=== PATIENT | female | born 1950 | race Two or more races ===

== ENCOUNTER → 2024-06-10 | Emergency (ER) | payer OTHER ==
[~2024-06-10] VITALS: Ht 170.2 cm; Wt 61.2 kg
[~2024-06-10] MED LIST: KETOROLAC TROMETHAMINE 60 MG VIAL IM ONE; TRIAMCINOLONE ACETONIDE 40 MG/ML VIAL IM ONE; TRIAMCINOLONE ACETONIDE 40 MG/ML VIAL ONE; ZESTRIL2.5 MG
== END | disposition home or self-care (01) ==
LOC: ER 17:29
DX: S42.391A Other fracture of shaft of right humerus, initial encounter for closed fracture (principal); I10 Essential (primary) hypertension
CPT/HCPCS: 29125; 73060; 96372; 99283; J1885; J3301

== ENCOUNTER 2024-06-14 08:14 | Outpatient (CLI) | payer OTHER ==
[~2024-06-14 08:14] MED LIST changes: -KETOROLAC TROMETHAMINE 60 MG VIAL IM ONE; -TRIAMCINOLONE ACETONIDE 40 MG/ML VIAL IM ONE; -TRIAMCINOLONE ACETONIDE 40 MG/ML VIAL ONE
[2024-06-14 09:26] LABS: URINE APPEARANCE Cloudy; URINE BILIRRUBIN Negative (NEGATIVE); URINE BLOOD Moderate; URINE COLOR Yellow; URINE GLUCOSE Negative (NEGATIVE); URINE KETONE 15 (NEGATIVE); URINE LEUKOCYTE Large; URINE NITRATE Negative; URINE PROTEIN 30 (NEGATIVE)
[2024-06-14 09:27] LABS: URINE BACTERIA 1102.4 uL (0.0-1933); URINE EPITHELIAL CELLS 4.9 uL (0.0-38.8); URINE RBC 135.5 uL (0.0-20.8)
[2024-06-14 09:49] LABS: MEAN CORPUSCULAR HGB CONC 29.5 g/dl (32.0-36.0); PLATELET COUNT 416 K/uL (150-450); RED BLOOD COUNT 3.21 M/uL (4.00-6.00); RED CELL DISTRIBUTION WIDTH 23.8 % (11.5-14.5)
[2024-06-14 09:59] LABS: INR 1.13; PARTIAL THROMBOPLASTIN TIME 24.7 SECONDS (22.0-34.0); PROTHROMBIN TIME 11.8 SECONDS (9.0-11.5)
[2024-06-14 10:04] LABS: HEMATOCRIT 20.9 % (36.0-45.00); MEAN CELL VOLUME 65.3 fL (80.00-100.00); MEAN CORPUSCULAR HEMOGLOBIN 19.3 pg (27.00-32.0)
[2024-06-14 10:06] LABS: HEMOGLOBIN 6.2 g/dL (12.0-15.00)
[2024-06-14 10:18] LABS: BILIRUBIN TOTAL 0.34 mg/dL (0.3-1.2); CALCIUM 9.1 mg/dL (8.5-10.1); CREATININE SERUM 0.72 mg/dL (0.55-1.02); GFR 79.62; GLOBULINA 4.5 G/DL (2.4-3.5); POTASSIUM 3.94 mEq/L (3.5-5.1); TOTAL PROTEIN 7.5 gm/dL (6.4-8.2)
[2024-06-14 10:25] LABS: ERYTHROCYTE SEDIMENTATION RATE 84 mm/hr
[2024-06-14 10:27] LABS: C-REACTIVE PROTEIN 4.89 MG/DL (0.00-0.29)
[2024-06-15 09:08] LABS: CA 125 15.6 U/mL (0.0-38.1)
[2024-06-16 13:06] LABS: albu 38.2 % (.); alp 1.8 % (.); alph 2 11.7 % (.); beta 29.9 % (.); gam 18.4 % (.); m spi 0 % (Not Observed)
[2024-06-17 01:05] LABS: Phos alk 79 IU/L (44-121); bone f 19 % (14-68); intestinal f 1 % (0-18); liver fractio 80 % (18-85)
[2024-06-18] MEDS ORDERED: ZESTRIL2.5 MG PO (17:13)
[2024-06-18] MEDS ORDERED: TRAMADOL HCL50 MG PO (17:14)
[2024-06-18] MEDS ORDERED: COLACE100 MG PO (17:15)
== END 2024-06-14 08:20 | disposition home or self-care (01) ==
LOC: LAB 08:14
PROVIDERS: ATTEND Orthopaedic Surgery
DX: D64.9 Anemia, unspecified (principal); M06.4 Inflammatory polyarthropathy; E88.89 Other specified metabolic disorders; D68.8 Other specified coagulation defects; N39.0 Urinary tract infection, site not specified; M81.8 Other osteoporosis without current pathological fracture

== ENCOUNTER 2024-06-14 09:27 | Outpatient (CLI) | payer OTHER | END 2024-06-14 09:31 | disposition home or self-care (01) | LOC: RAD 09:27 | PROVIDERS: ATTEND Orthopaedic Surgery | DX: S42.324A Nondisplaced transverse fracture of shaft of humerus, right arm, initial encounter for closed fracture (principal); Z76.89 Persons encountering health services in other specified circumstances ==

== ENCOUNTER 2024-06-14 15:29 | Inpatient (IN) | payer OTHER ==
[2024-06-14] MEDS ORDERED: SODIUM CHLORIDE 0.45 % 1,000 ML IV SCH (18:45)
[2024-06-14] MEDS ORDERED: TRAMADOL HCL 50 MG TABLET PO PRN (18:45)
[2024-06-14] MEDS ORDERED: FUROsemide 20 MG/2 ML VIAL IV SCH (18:45)
[2024-06-15] MEDS ORDERED: LISINOPRIL 2.5 MG TABLET PO SCH (09:00)
[2024-06-15] MEDS ORDERED: ENALAPRILAT DIHYDRATE 1.25 MG/ML VIAL IV STA (15:04)
[2024-06-15] MEDS ORDERED: ENALAPRILAT DIHYDRATE 1.25 MG/ML VIAL IV PRN (18:00)
[2024-06-16 07:09] LABS: IMMUNOGLOBULIN A 385 mg/dL (64-422); IMMUNOGLOBULIN G 1619 mg/dL (586-1602); IMMUNOGLOBULIN M 116 mg/dL (26-217)
[2024-06-16 08:59] LABS: HEMATOCRIT 31.5 % (36.0-45.00); MEAN CELL VOLUME 71.3 fL (80.00-100.00); MEAN CORPUSCULAR HEMOGLOBIN 22.8 pg (27.00-32.0); PLATELET COUNT 323 K/uL (150-450); RED BLOOD COUNT 4.42 M/uL (4.00-6.00)
[2024-06-16 09:02] LABS: RED CELL DISTRIBUTION WIDTH 26.4 % (11.5-14.5)
[2024-06-16 09:03] LABS: HEMOGLOBIN 10.1 g/dL (12.0-15.00)
[2024-06-16 15:11] LABS: kappa lambda r 1.03 (0.26-1.65); kappa light 41.6 mg/L (3.3-19.4); lambda light 40.4 mg/L (5.7-26.3)
[2024-06-16] MEDS ORDERED: DOCUSATE SODIUM 100MG CAP PO STA (19:13)
[2024-06-17 05:24] LABS: HEMATOCRIT 31.5 % (36.0-45.00); MEAN CELL VOLUME 72.5 fL (80.00-100.00); MEAN CORPUSCULAR HGB CONC 31.4 g/dl (32.0-36.0); PLATELET COUNT 301 K/uL (150-450); RED BLOOD COUNT 4.35 M/uL (4.00-6.00)
[2024-06-17 05:25] LABS: HEMOGLOBIN 9.9 g/dL (12.0-15.00); MEAN CORPUSCULAR HEMOGLOBIN 22.7 pg (27.00-32.0); RED CELL DISTRIBUTION WIDTH 26.4 % (11.5-14.5)
[2024-06-17] MEDS ORDERED: DOCUSATE SODIUM 100MG CAP PO SCH (09:00)
[2024-06-17 13:09] LABS: a:g ratio 0.7 (0.7-1.7); alpha 1 g 0.4 g/dL (0.0-0.4); alpha 2 0.8 g/dL (0.4-1.0); beta g 1.3 g/dL (0.7-1.3); gamma g 1.7 g/dL (0.4-1.8); globulin t 4.2 g/dL (2.2-3.9); m spike Not Observed g/dL (Not Observed); prot total 7.2 g/dL (6.0-8.5)
[2024-06-17] MEDS ORDERED: LIDOCAINE HCL 1% 10ML VIAL IJ STA (18:16)
[2024-06-17] MEDS ORDERED: KETOROLAC TROMETHAMINE 30 MG VIAL IV STA (18:21)
[2024-06-18] MEDS ORDERED: ZESTRIL2.5 MG PO ×2 (17:13)
[2024-06-18] MEDS ORDERED: TRAMADOL HCL50 MG PO ×2 (17:14)
[2024-06-18] MEDS ORDERED: COLACE100 MG PO ×2 (17:15)
== END 2024-06-18 18:17 | disposition home or self-care (01) | DRG 841 ==
LOC: MEDI 15:29
PROVIDERS: ADMIT Internal Medicine Hematology & Oncology; ATTEND Internal Medicine Hematology & Oncology
PROC: 30233N1 Transfusion of Nonautologous Red Blood Cells into Peripheral Vein, Percutaneous Approach (ICD-10-PCS; 2024-06-15)
PROC: 07DR3ZZ Extraction of Iliac Bone Marrow, Percutaneous Approach (ICD-10-PCS; principal; 2024-06-17)
PROC: 079T3ZX Drainage of Bone Marrow, Percutaneous Approach, Diagnostic (ICD-10-PCS; 2024-06-17)
DX: C90.00 Multiple myeloma not having achieved remission (principal); M84.421A Pathological fracture, right humerus, initial encounter for fracture; D63.0 Anemia in neoplastic disease; C80.1 Malignant (primary) neoplasm, unspecified
CPT/HCPCS: 240

== ENCOUNTER → 2024-06-22 10:54 | Outpatient (CLI) | payer OTHER ==
[~2024-06-22 10:54] MED LIST changes: +COLACE100 MG PO; +TRAMADOL HCL50 MG PO; +ZESTRIL2.5 MG PO
== END | disposition home or self-care (01) ==
LOC: NUCLEAR 10:54
PROVIDERS: ATTEND Orthopaedic Surgery
DX: S42.324A Nondisplaced transverse fracture of shaft of humerus, right arm, initial encounter for closed fracture (principal)
CPT/HCPCS: 78315; A9503

== ENCOUNTER 2024-07-01 08:16 | Outpatient (CLI) | payer OTHER ==
[2024-07-01 09:08] LABS: HEMATOCRIT 33.1 % (36.0-45.00); HEMOGLOBIN 10.3 g/dL (12.0-15.00); MEAN CELL VOLUME 74.1 fL (80.00-100.00); MEAN CORPUSCULAR HEMOGLOBIN 22.9 pg (27.00-32.0); MEAN CORPUSCULAR HGB CONC 30.9 g/dl (32.0-36.0); PLATELET COUNT 390 K/uL (150-450); RED BLOOD COUNT 4.47 M/uL (4.00-6.00)
== END 2024-07-01 08:22 | disposition home or self-care (01) ==
LOC: LAB 08:16
PROVIDERS: ATTEND Internal Medicine Hematology & Oncology
DX: D63.0 Anemia in neoplastic disease (principal); C90.00 Multiple myeloma not having achieved remission

== ENCOUNTER 2024-07-06 09:05 | Outpatient (CLI) | payer OTHER | END 2024-07-06 09:10 | disposition home or self-care (01) | LOC: RAD 09:05 | PROVIDERS: ATTEND Orthopaedic Surgery | DX: S42.324A Nondisplaced transverse fracture of shaft of humerus, right arm, initial encounter for closed fracture (principal) ==

== ENCOUNTER 2024-07-08 08:29 | Outpatient (CLI) | payer OTHER ==
[2024-07-08 09:14] LABS: HEMATOCRIT 33.3 % (36.0-45.00); HEMOGLOBIN 10.5 g/dL (12.0-15.00); MEAN CELL VOLUME 74.4 fL (80.00-100.00); MEAN CORPUSCULAR HEMOGLOBIN 23.5 pg (27.00-32.0); MEAN CORPUSCULAR HGB CONC 31.6 g/dl (32.0-36.0); PLATELET COUNT 320 K/uL (150-450); RED BLOOD COUNT 4.48 M/uL (4.00-6.00); RED CELL DISTRIBUTION WIDTH 26.2 % (11.5-14.5)
[2024-07-08 09:25] LABS: PH,URINE 7.5 (5.0-8.0); URINE APPEARANCE Clear; URINE BILIRRUBIN Negative (NEGATIVE); URINE BLOOD Negative; URINE COLOR Yellow; URINE GLUCOSE Negative (NEGATIVE); URINE KETONE Negative (NEGATIVE); URINE LEUKOCYTE Moderate; URINE NITRATE Negative; URINE PROTEIN Negative (NEGATIVE); URINE UROBILINOGEN 0.2 E.U./dl
[2024-07-08 09:26] LABS: URINE BACTERIA 41.5 uL (0.0-1933); URINE EPITHELIAL CELLS 5.4 uL (0.0-38.8); URINE RBC 6.1 uL (0.0-20.8); URINE WBC 90.7 uL (0.0-23.2)
[2024-07-08 09:50] LABS: INR 1.13; PARTIAL THROMBOPLASTIN TIME 26.6 SECONDS (22.0-34.0); PROTHROMBIN TIME 12.2 SECONDS (9.0-11.5)
[2024-07-08 09:56] LABS: ALBUMIN 3.1 gm/dL (3.4-5.0); BILIRUBIN TOTAL 0.41 mg/dL (0.3-1.2); CALCIUM 9.5 mg/dL (8.5-10.1); CHOL HDL RATIO 3.4 (0-5.0); CREATININE SERUM 0.68 mg/dL (0.55-1.02); GFR 85.05; GLOBULINA 4.7 G/DL (2.4-3.5); POTASSIUM 4.14 mEq/L (3.5-5.1); TOTAL PROTEIN 7.8 gm/dL (6.4-8.2)
== END 2024-07-08 08:38 | disposition home or self-care (01) ==
LOC: LAB 08:29
PROVIDERS: ATTEND Orthopaedic Surgery
DX: D64.9 Anemia, unspecified (principal); E88.89 Other specified metabolic disorders; D68.8 Other specified coagulation defects; N39.0 Urinary tract infection, site not specified; Z22.322 Carrier or suspected carrier of Methicillin resistant Staphylococcus aureus; E11.9 Type 2 diabetes mellitus without complications; I10 Essential (primary) hypertension; Z76.89 Persons encountering health services in other specified circumstances; E78.00 Pure hypercholesterolemia, unspecified; E11.51 Type 2 diabetes mellitus with diabetic peripheral angiopathy without gangrene; I13.10 Hypertensive heart and chronic kidney disease without heart failure, with stage 1 through stage 4 chronic kidney disease, or unspecified chronic kidney disease; R74.01 Elevation of levels of liver transaminase levels; D64.89 Other specified anemias

== ENCOUNTER → 2024-07-16 06:04 | Outpatient (CLI) | payer OTHER ==
[2024-07-16 07:54] LABS: INR 1.1; PARTIAL THROMBOPLASTIN TIME 26.8 SECONDS (22.0-34.0)
[2024-07-16 07:57] LABS: PROTHROMBIN TIME 11.9 SECONDS (9.0-11.5)
== END | disposition home or self-care (01) ==
LOC: LAB 06:04
PROVIDERS: ATTEND Orthopaedic Surgery
DX: D68.8 Other specified coagulation defects (principal)

== ENCOUNTER 2024-07-19 05:55 | Inpatient (IN) | payer OTHER ==
[2024-07-14 12:55] VITALS: BP 150/71
[~2024-07-19] VITALS: Ht 170.2 cm; Wt 52.6 kg
[2024-07-19] MEDS ORDERED: CEFAZOLIN SODIUM 1,000 MG VIAL ONE ×2 (07:33→17:09)
[2024-07-19] MEDS ORDERED: BUPIVACAINE HCL/Mpf 0.5% 10ML VIAL ONE (07:33)
[2024-07-19] MEDS ORDERED: MORPHINE SULFATE 4 MG/ML VIAL IV ONE ×4 (12:45→14:00)
[2024-07-19] MEDS ORDERED: MEPERIDINE HCL/PF 50 MG/ML VIAL IM PRN (13:30)
[2024-07-19] MEDS ORDERED: ONDANSETRON 4 MG TAB.RAPDIS PO PRN (13:30)
[2024-07-19] MEDS ORDERED: ONDANSETRON HCL 2 MG/ML VIAL IV PRN (13:30)
[2024-07-19] MEDS ORDERED: PROMETHAZINE HCL 50 MG/ML AMPUL IM PRN (13:30)
[2024-07-19] MEDS ORDERED: TRAMADOL HCL 50 MG TABLET PO PRN (13:30)
[2024-07-19] MEDS ORDERED: SODIUM CHLORIDE 0.45 % 1,000 ML IV SCH (13:30)
[2024-07-19] MEDS ORDERED: PANTOPRAZOLE SODIUM 40 MG TABLET.DR PO SCH (13:31)
[2024-07-19] MEDS ORDERED: BUPIVACAINE HCL/PF 0.25% 30ML VIAL InF ONE (16:00)
[2024-07-19] MEDS ORDERED: CEFAZOLIN SODIUM 1,000 MG VIAL IV ONE (16:00)
[2024-07-19] MEDS ORDERED: ACETAMINOPHEN 325 MG TABLET PO SCH (17:00)
[2024-07-19] MEDS ORDERED: CEFAZOLIN SODIUM 1,000 MG VIAL IV SCH (17:00)
[2024-07-19 19:06] VITALS: BP 137/70; O2SAT 95
[2024-07-19] MEDS ORDERED: KETOROLAC TROMETHAMINE 10 MG TABLET PO SCH (21:00)
[2024-07-20] VITALS: BP 118/65; O2SAT 99
[2024-07-20 07:48] VITALS: BP 116/62; O2SAT 95
[2024-07-20 08:45] LABS: HEMATOCRIT 30.3 % (36.0-45.00); MEAN CELL VOLUME 73.9 fL (80.00-100.00); MEAN CORPUSCULAR HEMOGLOBIN 23.4 pg (27.00-32.0); MEAN CORPUSCULAR HGB CONC 31.6 g/dl (32.0-36.0); PLATELET COUNT 268 K/uL (150-450)
[2024-07-20 08:53] LABS: HEMOGLOBIN 9.6 g/dL (12.0-15.00); RED CELL DISTRIBUTION WIDTH 25.5 % (11.5-14.5)
[2024-07-20] MEDS ORDERED: LISINOPRIL 2.5 MG TABLET PO SCH (17:00)
[2024-07-20] MEDS ORDERED: SOD FERRIC GLUC COMPLX/SUCROSE 62.5 MG in 0.9 % SODIUM CHLORIDE 50 ML IV SCH (17:00)
[2024-07-21] MEDS ORDERED: SENNA/DOCUSATE SODIUM 1 TAB TABLET PO SCH (09:00)
== END 2024-07-20 14:06 | disposition home or self-care (01) | DRG 478 ==
LOC: CIR.AMB 05:55 → O/R 13:53 → SURH 14:02
PROVIDERS: ADMIT Orthopaedic Surgery; ATTEND Orthopaedic Surgery
PROC: 0PSF06Z Reposition Right Humeral Shaft with Intramedullary Internal Fixation Device, Open Approach (ICD-10-PCS; 2024-07-19)
PROC: 0PBF3ZX Excision of Right Humeral Shaft, Percutaneous Approach, Diagnostic (ICD-10-PCS; principal; 2024-07-19 07:00)
DX: C40.01 Malignant neoplasm of scapula and long bones of right upper limb (principal); M84.421A Pathological fracture, right humerus, initial encounter for fracture; D63.0 Anemia in neoplastic disease; Z20.822 Contact with and (suspected) exposure to COVID-19

== ENCOUNTER 2024-08-01 10:47 | Inpatient (IN) | payer OTHER ==
[~2024-08-01] VITALS: Ht 160 cm; Wt 83.0 kg
[2024-08-01] MEDS ORDERED: ATORVASTATIN CA20 MG PO (11:07)
[2024-08-01] MEDS ORDERED: 0.9 % SODIUM CHLORIDE 1,000 ML IV ONE (11:30)
[2024-08-01] MEDS ORDERED: FAMOtidine 10 MG/ML (4ML VIAL) IV ONE (11:45)
[2024-08-01 12:12] LABS: HEMATOCRIT 30.8 % (36.0-45.00); HEMOGLOBIN 9.8 g/dL (12.0-15.00); MEAN CELL VOLUME 76.1 fL (80.00-100.00); MEAN CORPUSCULAR HEMOGLOBIN 24.1 pg (27.00-32.0); MEAN CORPUSCULAR HGB CONC 31.7 g/dl (32.0-36.0); PLATELET COUNT 439 K/uL (150-450); RED BLOOD COUNT 4.05 M/uL (4.00-6.00); RED CELL DISTRIBUTION WIDTH 24.8 % (11.5-14.5)
[2024-08-01 12:32] LABS: ALBUMIN 2.9 gm/dL (3.4-5.0); BILIRUBIN TOTAL 0.43 mg/dL (0.3-1.2); CALCIUM 9.8 mg/dL (8.5-10.1); CREATININE SERUM 0.74 mg/dL (0.55-1.02); GFR 77.14; GLOBULINA 5.4 G/DL (2.4-3.5); POTASSIUM 3.77 mEq/L (3.5-5.1); TOTAL PROTEIN 8.3 gm/dL (6.4-8.2)
[2024-08-01 13:00] LABS: PH,URINE 6.5 (5.0-8.0); URINE APPEARANCE Clear; URINE BILIRRUBIN Negative (NEGATIVE); URINE BLOOD Negative; URINE COLOR Yellow; URINE GLUCOSE Negative (NEGATIVE); URINE KETONE Negative (NEGATIVE); URINE LEUKOCYTE Small; URINE NITRATE Negative; URINE PROTEIN Negative (NEGATIVE); URINE UROBILINOGEN 0.2 E.U./dl
[2024-08-01 13:01] LABS: URINE BACTERIA 66.7 uL (0.0-1933); URINE RBC 2.5 uL (0.0-20.8); URINE WBC 14.3 uL (0.0-23.2)
[2024-08-01] MEDS ORDERED: CEFTRIAXONE SODIUM 1,000 MG VIAL IV ONE (14:15)
[2024-08-01] MEDS ORDERED: INSULIN REGULAR, HUMAN 1,000 UNIT/10 ML UNITS SUBCUTANEO NR (14:29)
[2024-08-01] MEDS ORDERED: 0.9 % SODIUM CHLORIDE 1,000 ML IV SCH (20:00)
[2024-08-01] MEDS ORDERED: PIPERACILLIN/TAZOBACTAM SODIUM 3.375 GM in DEXTROSE 5 % IN WATER 100 ML IV SCH (20:09)
[2024-08-01] MEDS ORDERED: ONDANSETRON HCL 4 MG in 0.9 % SODIUM CHLORIDE 50 ML IV PRN (20:15)
[2024-08-01] MEDS ORDERED: ACETAMINOPHEN 500 MG GEL..CAP PO PRN (20:15)
[2024-08-01] MEDS ORDERED: LACTULOSE 10 G/15 ML ML PO ONE (20:15)
[2024-08-01 21:28] LABS: INR 1.15; PARTIAL THROMBOPLASTIN TIME 22.8 SECONDS (22.0-34.0); PROTHROMBIN TIME 12.4 SECONDS (9.0-11.5)
[2024-08-01 22:54] VITALS: BP 180/89; O2SAT 98
[2024-08-02 02:21] VITALS: BP 194/76; O2SAT 99
[2024-08-02 08:33] VITALS: BP 168/67
[2024-08-02] MEDS ORDERED: LISINOPRIL 2.5 MG TABLET PO SCH (09:00)
[2024-08-02] MEDS ORDERED: ATORVASTATIN CALCIUM 20 MG TABLET PO SCH (09:00)
[2024-08-02] MEDS ORDERED: FAMOTIDINE/PF 20 MG in 0.9 % SODIUM CHLORIDE 8 ML IV PUSH SCH (09:00)
[2024-08-02 14:10] LABS: URINE APPEARANCE Clear; URINE BILIRRUBIN Negative (NEGATIVE); URINE BLOOD Negative; URINE COLOR Yellow; URINE GLUCOSE Negative (NEGATIVE); URINE KETONE Negative (NEGATIVE); URINE LEUKOCYTE Negative; URINE NITRATE Negative; URINE PROTEIN Negative (NEGATIVE); URINE UROBILINOGEN 0.2 E.U./dl
[2024-08-02 14:11] LABS: URINE EPITHELIAL CELLS 2.6 uL (0.0-38.8); URINE RBC 2.7 uL (0.0-20.8); URINE WBC 2.4 uL (0.0-23.2)
[2024-08-02 14:37] LABS: URINE BACTERIA 2.5 uL (0.0-1933)
[2024-08-02 14:41] LABS: HEMATOCRIT 27.6 % (36.0-45.00); MEAN CORPUSCULAR HGB CONC 31.5 g/dl (32.0-36.0); PLATELET COUNT 376 K/uL (150-450); RED BLOOD COUNT 3.64 M/uL (4.00-6.00); RED CELL DISTRIBUTION WIDTH 24.6 % (11.5-14.5)
[2024-08-02 14:42] LABS: HEMOGLOBIN 8.7 g/dL (12.0-15.00); MEAN CORPUSCULAR HEMOGLOBIN 23.9 pg (27.00-32.0)
[2024-08-02 15:14] LABS: C-REACTIVE PROTEIN 11.7 MG/DL (0.00-0.29); MAGNESIUM 2.2 mg/dL (1.8-2.4); PHOSPHOROUS 5.7 mg/dL (2.5-4.9)
[2024-08-02 17:15] VITALS: BP 137/75; O2SAT 98
[2024-08-03 03:08] VITALS: BP 145/75; O2SAT 100
[2024-08-03] MEDS ORDERED: LISINOPRIL 10 MG TABLET PO SCH (09:00)
[2024-08-03 09:34] VITALS: BP 132/65
[2024-08-03 11:10] LABS: ALBUMIN 2.1 gm/dL (3.4-5.0); BILIRUBIN TOTAL 0.67 mg/dL (0.3-1.2); CALCIUM 8.8 mg/dL (8.5-10.1); CREATININE SERUM 0.64 mg/dL (0.55-1.02); GFR 91.22; GLOBULINA 3.9 G/DL (2.4-3.5); POTASSIUM 4.14 mEq/L (3.5-5.1)
[2024-08-03 19:23] VITALS: BP 147/75; O2SAT 97
[2024-08-04 02:17] VITALS: BP 152/75; O2SAT 95
[2024-08-04 08:53] LABS: HEMATOCRIT 26.6 % (36.0-45.00); HEMOGLOBIN 8.3 g/dL (12.0-15.00); MEAN CELL VOLUME 77.3 fL (80.00-100.00); MEAN CORPUSCULAR HEMOGLOBIN 24.1 pg (27.00-32.0); MEAN CORPUSCULAR HGB CONC 31.3 g/dl (32.0-36.0); PLATELET COUNT 320 K/uL (150-450); RED BLOOD COUNT 3.43 M/uL (4.00-6.00); RED CELL DISTRIBUTION WIDTH 24.3 % (11.5-14.5)
[2024-08-04 09:12] VITALS: BP 149/70
[2024-08-04 09:44] LABS: ALBUMIN 2.1 gm/dL (3.4-5.0); BILIRUBIN TOTAL 0.51 mg/dL (0.3-1.2); CALCIUM 8.3 mg/dL (8.5-10.1); CREATININE SERUM 0.54 mg/dL (0.55-1.02); GFR 110.97; GLOBULINA 3.7 G/DL (2.4-3.5); POTASSIUM 3.66 mEq/L (3.5-5.1); TOTAL PROTEIN 5.8 gm/dL (6.4-8.2)
[2024-08-04] MEDS ORDERED: PEG3350/SOD SULF,BICARB,CL/KCL 4,000 ML GALLON PO NR (12:00)
[2024-08-04 18:45] VITALS: BP 158/71; O2SAT 96
[2024-08-05 01:00] VITALS: BP 157/73
[2024-08-05 07:00] LABS: MEAN CELL VOLUME 77.5 fL (80.00-100.00); MEAN CORPUSCULAR HGB CONC 32.4 g/dl (32.0-36.0); PLATELET COUNT 286 K/uL (150-450); RED CELL DISTRIBUTION WIDTH 21.8 % (11.5-14.5)
[2024-08-05] MEDS ORDERED: PEG3350/SOD SULF,BICARB,CL/KCL 4,000 ML GALLON PO STA (07:36)
[2024-08-05] MEDS ORDERED: NA PHOS,M-B/NA PHOS,DI-BA 1 BOTTLE ENEMA RECTAL STA (09:08)
[2024-08-05 09:56] VITALS: BP 148/73
[2024-08-05 16:37] VITALS: BP 165/81
[2024-08-06 01:06] VITALS: BP 150/79; O2SAT 100
[2024-08-06] MEDS ORDERED: MIDAZOLAM HCL 2 MG/2 ML VIAL IV STA (09:39)
[2024-08-06] MEDS ORDERED: fentaNYL CITRATE 50 MCG/ML AMPUL IV STA (09:39)
[2024-08-06 09:48] VITALS: BP 160/79; O2SAT 97
[2024-08-06 16:37] VITALS: BP 160/74
[2024-08-07 01:15] VITALS: BP 160/74; O2SAT 98
[2024-08-07 08:41] VITALS: BP 115/71; O2SAT 98
== END 2024-08-07 12:38 | disposition home or self-care (01) | DRG 194 ==
LOC: ER 10:48 → MEDJ 20:55
PROVIDERS: General Practice; Internal Medicine Infectious Disease; ADMIT Internal Medicine; ATTEND Internal Medicine
PROC: BW21ZZZ Computerized Tomography (CT Scan) of Abdomen and Pelvis (ICD-10-PCS; principal; 2024-08-01)
PROC: 30233N1 Transfusion of Nonautologous Red Blood Cells into Peripheral Vein, Percutaneous Approach (ICD-10-PCS; 2024-08-04)
PROC: 0DBK8ZX Excision of Ascending Colon, Via Natural or Artificial Opening Endoscopic, Diagnostic (ICD-10-PCS; 2024-08-06)
DX: J18.9 Pneumonia, unspecified organism (principal); C20 Malignant neoplasm of rectum; K62.5 Hemorrhage of anus and rectum; K59.09 Other constipation; I10 Essential (primary) hypertension; E11.9 Type 2 diabetes mellitus without complications; D63.0 Anemia in neoplastic disease

== ENCOUNTER 2024-08-11 08:42 | Outpatient (CLI) | payer OTHER ==
[~2024-08-11 08:42] MED LIST changes: +ATORVASTATIN CA20 MG PO
== END 2024-08-11 08:52 | disposition home or self-care (01) ==
LOC: RAD 08:42
PROVIDERS: ATTEND Orthopaedic Surgery
DX: S42.324D Nondisplaced transverse fracture of shaft of humerus, right arm, subsequent encounter for fracture with routine healing (principal)

== ENCOUNTER 2024-08-16 07:07 | Emergency (ER) | payer OTHER ==
[~2024-08-16] VITALS: Ht 170.2 cm; Wt 52.6 kg
[2024-08-16] MEDS ORDERED: 0.9 % SODIUM CHLORIDE 1,000 ML IV ONE (08:45)
[2024-08-16] MEDS ORDERED: FAMOtidine 10 MG/ML (4ML VIAL) IV ONE (08:45)
[2024-08-16] MEDS ORDERED: CEFTRIAXONE SODIUM 1,000 MG VIAL IV ONE (08:45)
[2024-08-16] MEDS ORDERED: TAMSULOSIN HCL 0.4 MG CAP PO ONE (08:45)
[2024-08-16 09:22] LABS: HEMATOCRIT 34.8 % (36.0-45.00); HEMOGLOBIN 11.3 g/dL (12.0-15.00); MEAN CELL VOLUME 79.2 fL (80.00-100.00); MEAN CORPUSCULAR HEMOGLOBIN 25.6 pg (27.00-32.0); MEAN CORPUSCULAR HGB CONC 32.4 g/dl (32.0-36.0); PLATELET COUNT 257 K/uL (150-450); RED BLOOD COUNT 4.39 M/uL (4.00-6.00); RED CELL DISTRIBUTION WIDTH 21.6 % (11.5-14.5)
[2024-08-16 09:48] LABS: ALBUMIN 2.7 gm/dL (3.4-5.0); BILIRUBIN TOTAL 0.48 mg/dL (0.3-1.2); CALCIUM 9.4 mg/dL (8.5-10.1); CREATININE SERUM 0.64 mg/dL (0.55-1.02); GFR 91.22; GLOBULINA 5.1 G/DL (2.4-3.5); POTASSIUM 3.05 mEq/L (3.5-5.1); TOTAL PROTEIN 7.8 gm/dL (6.4-8.2)
[2024-08-16] MEDS ORDERED: POTASSIUM BICARBONATE/CIT AC 25 MEQ TABLET.EFF PO ONE (12:30)
[2024-08-16 13:41] LABS: PH,URINE 7.5 (5.0-8.0); URINE APPEARANCE Clear; URINE BILIRRUBIN Negative (NEGATIVE); URINE BLOOD Negative; URINE COLOR Yellow; URINE GLUCOSE Negative (NEGATIVE); URINE KETONE Negative (NEGATIVE); URINE LEUKOCYTE Negative; URINE NITRATE Negative; URINE PROTEIN Negative (NEGATIVE); URINE UROBILINOGEN 0.2 E.U./dl
[2024-08-16 13:46] LABS: URINE RBC 2.4 uL (0.0-20.8)
[2024-08-16 13:57] LABS: URINE CAST 0.15 uL (0.0-1.40); URINE EPITHELIAL CELLS 0.9 uL (0.0-38.8); URINE WBC 1.5 uL (0.0-23.2)
[2024-08-16] MEDS ORDERED: ZITHROMAX200 MG PO (14:23)
== END 2024-08-16 14:51 | disposition home or self-care (01) ==
LOC: ER 07:09
PROVIDERS: General Practice
DX: R31.9 Hematuria, unspecified (principal); I10 Essential (primary) hypertension; E11.9 Type 2 diabetes mellitus without complications
CPT/HCPCS: 36415; 51702; 74177; 96365; 96366; 99284; J0696; J3490; J7030; Q9965